=== PATIENT | female | born 1970 | race African-American/Black ===

== ENCOUNTER 2017-12-30 02:02 | Emergency (ER) | payer OTHER ==
[2017-12-30 02:38] LABS: ADD MAN DIFF? NO
[2017-12-30 02:44] LABS: BASO % 1 % (0-3); EOS % 1 % (0-3); HEMATOCRIT 28.6 % (36.0-47.0); HEMOGLOBIN 8.9 g/dL (12.0-15.5); LYMPH # 1.6 x10^3/uL (1.0-4.8); LYMPH % 27 % (24-48); MEAN CORPUSCULAR HEMOGLOBIN 22 pg (25-35); MEAN CORPUSCULAR HGB CONC 31 g/dL (31-37); MEAN CORPUSCULAR VOLUME 69 fL (79-100); MONO # 0.7 x10^3/uL (0.0-1.1); MONO % 11 % (0-9); NEUT # 3.5 x10^3uL (1.8-7.7); NEUT % 61 % (31-73); PLATELET COUNT 298 x10^3/uL (140-400); RED BLOOD COUNT 4.14 x10^6/uL (3.50-5.40); RED CELL DISTRIBUTION WIDTH 21.8 % (11.5-14.5); WHITE BLOOD COUNT 5.8 x10^3/uL (4.0-11.0)
[2017-12-30 02:50] LABS: ANION GAP 10 (6-14); BLOOD UREA NITROGEN 28 mg/dL (7-20); BUN/CREATININE RATIO 23 (6-20); CALCIUM 9.4 mg/dL (8.5-10.1); CARBON DIOXIDE 26 mmol/L (21-32); CHLORIDE 104 mmol/L (98-107); CREATININE 1.2 mg/dL (0.6-1.0); GFR 57.8; GLUCOSE 101 mg/dL (70-99); SODIUM 140 mmol/L (136-145)
[2017-12-30 02:55] LABS: ALBUMIN 3.1 g/dL (3.4-5.0); ALBUMIN/GLOBULIN RATIO 0.6 (1.0-1.7); ALK PHOS 72 U/L (46-116); ALT (SGPT) 18 U/L (14-59); AST (SGOT) 20 U/L (15-37); TOTAL BILIRUBIN 0.2 mg/dL (0.2-1.0); TOTAL PROTEIN 8.2 g/dL (6.4-8.2)
[2017-12-30 03:08] LABS: TROPONIN BY ISTAT 0.01 ng/ml (<0.08)
[2017-12-30 05:13] LABS: PLT ESTIMATE ADEQUATE (ADEQUATE)
[2017-12-30 05:14] LABS: ANISOCYTOSIS MOD; HYPOCHROMIA MOD; MICROCYTOSIS MOD
== END 2017-12-30 05:34 | disposition home or self-care (01) ==
LOC: ER 02:02
DX: I10 Essential (primary) hypertension (principal); G89.29 Other chronic pain; M25.562 Pain in left knee; M79.672 Pain in left foot; Z88.8 Allergy status to other drugs, medicaments and biological substances
CPT/HCPCS: 36415; 71046; 73560; 73620; 80053; 84484; 85025; 93005; 99285-25

== ENCOUNTER → 2018-02-23 | Outpatient (CLI) | payer OTHER | END | disposition home or self-care (01) | LOC: US 14:54 | DX: I10 Essential (primary) hypertension (principal) | CPT/HCPCS: 93975 ==

== ENCOUNTER 2019-06-05 01:34 | Inpatient (IN) | payer OTHER ==
[~2019-06-05] VITALS: Ht 154.9 cm; Wt 108.0 kg
[~2019-06-05 01:34] MED LIST: ATEN50TA PO; DILT180C2 PO; IBUP-1060 PO; IPRA4AER IH; LOSA100T14 PO; METH4TAB2 PO
--- NOTE | 2019-06-05 03:09 | PHYS DOC ---
Past Medical History Past Medical History: Hypertension, Other Additional Past Medical Histor: bilat le edema w/ soa. denies chf Past Surgical History: Alcohol Use: None Drug Use: None Adult General Chief Complaint Chief Complaint: DIZZY/LIGHT HEADED HPI HPI Patient is a 48 year old came in for elev bp up to 220 ON losartan and hydralazine did have some chest pain two days ago when bp was 240, "it wasnt like no heart attack but it was dull" only lasted a short time headache lasted for three days then it went away. today felt dizzy described as lightheadedness. no fever. Review of Systems Review of Systems Constitutional: Denies fever or chills [] Eyes: Denies change in visual acuity, redness, or eye pain [] HENT: Cardiovascular: No additional information not addressed in HPI [] GI: Denies abdominal pain, nausea, vomiting, bloody stools or diarrhea [] : Denies dysuria or hematuria [] Musculoskeletal: Denies back pain or joint pain [] All other systems were reviewed and found to be within normal limits, except as documented in this note. Current Medications Current Medications Current Medications Medications (Trade) Dose Ordered Sig/Angela Start Time Stop Time Status Last Admin Dose Admin Aspirin (Children'S Aspirin) 324 mg 1X ONCE 06/05/19 04:00 06/05/19 04:01 DC 06/05/19 03:36 324 MG Clonidine HCl (Catapres) 0.1 mg STK-MED ONCE 06/05/19 04:59 06/05/19 05:00 DC Labetalol HCl (Normodyne Iv Push) 20 mg PRN Q2HRS PRN 06/05/19 05:00 Nitroglycerin (Nitro-Bid Oint) 1 inch STK-MED ONCE 06/05/19 04:59 06/05/19 05:00 DC Allergies Allergies Allergies Coded Allergies Type Severity Reaction Last Updated Verified Corticosteroids (Glucocorticoids) Allergy Intermediate COUGH, RASH, HEADACHE 06/05/19 Yes Physical Exam Physical Exam Constitutional: Well developed, well nourished, no acute distress, non-toxic appearance. [] HENT: Normocephalic, atraumatic, bilateral external ears normal, oropharynx moist, no oral exudates, nose normal. [] Eyes: PERRLA, EOMI, conjunctiva normal, no discharge. [] Neck: Normal range of motion, no tenderness, supple, no stridor. [] Cardiovascular:Heart rate regular rhythm, no murmur [] Lungs & Thorax: Bilateral breath sounds clear to auscultation [] Abdomen: Bowel sounds normal, soft, no tenderness, no masses, no pulsatile masses. [] Skin: Warm, dry, no erythema, no rash. [] Back: No tenderness, no CVA tenderness. [] Extremities: No tenderness, no cyanosis, no clubbing, ROM intact, no edema. [] Neurologic: Alert and oriented X 3, normal motor function, normal sensory function, no focal deficits noted. [] Psychologic: Affect normal, judgement normal, mood normal. [] Current Patient Data Vital Signs Vital Signs Date Time Temp Pulse Resp B/P (MAP) Pulse Ox O2 Delivery O2 Flow Rate FiO2 06/05/19 04:14 62 15 97 06/05/19 03:40 232/112 06/05/19 03:20 97.6 Room Air 97.6 Lab Values Laboratory Tests Test 06/05/19 02:55 06/05/19 03:25 Urine Color Yellow Urine Clarity Clear Urine pH 5.5 Urine Specific [place] 1.015 Urine Protein Negative mg/dL (NEG-TRACE) Urine Glucose (UA) Negative mg/dL (NEG) Urine Ketones (Stick) Negative mg/dL (NEG) Urine Blood Negative (NEG) Urine Nitrite Negative (NEG) Urine Bilirubin Negative (NEG) Urine Urobilinogen Dipstick 0.2 mg/dL (0.2 mg/dL) Urine Leukocyte Esterase Negative (NEG) Urine RBC 0 /HPF (0-2) Urine WBC Occ /HPF (0-4) Urine Squamous Epithelial Cells Mod /LPF Urine Bacteria 0 /HPF (0-FEW) Urine Mucus Slight /LPF White Blood Count 5.2 x10^3/uL (4.0-11.0) Red Blood Count 4.13 x10^6/uL (3.50-5.40) Hemoglobin 11.8 g/dL (12.0-15.5) L Hematocrit 35.3 % (36.0-47.0) L Mean Corpuscular Volume 86 fL (79-100) Mean Corpuscular Hemoglobin 28 pg (25-35) Mean Corpuscular Hemoglobin Concent 33 g/dL (31-37) Red Cell Distribution Width 16.0 % (11.5-14.5) H Platelet Count 231 x10^3/uL (140-400) Neutrophils (%) (Auto) 57 % (31-73) Lymphocytes (%) (Auto) 31 % (24-48) Monocytes (%) (Auto) 10 % (0-9) H Eosinophils (%) (Auto) 1 % (0-3) Basophils (%) (Auto) 1 % (0-3) Neutrophils # (Auto) 3.0 x10^3/uL (1.8-7.7) Lymphocytes # (Auto) 1.6 x10^3/uL (1.0-4.8) Monocytes # (Auto) 0.5 x10^3/uL (0.0-1.1) Eosinophils # (Auto) 0.1 x10^3/uL (0.0-0.7) Basophils # (Auto) 0.0 x10^3/uL (0.0-0.2) Sodium Level 141 mmol/L (136-145) Potassium Level 4.0 mmol/L (3.5-5.1) Chloride Level 104 mmol/L (98-107) Carbon Dioxide Level 28 mmol/L (21-32) Anion Gap 9 (6-14) Blood Urea Nitrogen 24 mg/dL (7-20) H Creatinine 0.9 mg/dL (0.6-1.0) Estimated GFR (Cockcroft-Gault) 80.2 BUN/Creatinine Ratio 27 (6-20) H Glucose Level 103 mg/dL (70-99) H Calcium Level 9.2 mg/dL (8.5-10.1) Magnesium Level 1.9 mg/dL (1.8-2.4) Total Bilirubin 0.3 mg/dL (0.2-1.0) Aspartate Amino Transferase (AST) 19 U/L (15-37) Alanine Aminotransferase (ALT) 24 U/L (14-59) Alkaline Phosphatase 81 U/L (46-116) Troponin I Quantitative 0.035 ng/mL (0.000-0.055) CS-Lbx-J-Type Natriuretic Peptide 428 pg/mL (0-124) H Total Protein 7.7 g/dL (6.4-8.2) Albumin 3.1 g/dL (3.4-5.0) L Albumin/Globulin Ratio 0.7 (1.0-1.7) L Laboratory Tests 06/05/19 03:25 Laboratory Tests 06/05/19 03:25 EKG EKG []EKG shows a normal sinus rhythm there are some T-wave inversions laterally in 1 and aVL no STEMI ekg monitor did reveal a period of approximately 5 beats of nonsustained V. tach while in the emergency room Radiology/Procedures Radiology/Procedures [] Impressions: Chest x-ray my read suggested cardiomegaly Course & Med Decision Making Course & Med Decision Making Pertinent Labs and Imaging studies reviewed. (See chart for details) []48-year-old female with history of hypertension is presenting with hypertensive urgency she did have some dizziness and lightheadedness couple days ago did have some chest pain. Troponin negative in the emergency room the patient did have one episode of nonsustained V. tach. Last echo I have ACCESS TO was from 3 years ago and there is some cardiomegaly on chest x-ray so I was a little bit concerned about the possibility of reduced EF and risk for malignant arrhythmia. Given in addition the blood pressure is hard to control at think she should be admitted overnight for observation. We did do labetalol in the emergency room, ALSO TRIED clonidine and nitropaste. will work on getting it down that way. admit to hospitalist for cardiac monitoring given the nonsustaine vtach in ED, cards consult. electrolytes look good. Dragon Disclaimer Dragon Disclaimer This electronic medical record was generated, in whole or in part, using a voice recognition dictation system. Departure Departure Impression: Primary Impression: Hypertensive urgency Disposition: 09 ADMITTED INPATIENT Admitting Physician: HIMMaximiliano Condition: STABLE Referrals: NO PCP (PCP) VIRGINIA EVANS MD Jun 05, 2019 03:09
[2019-06-05] MEDS ORDERED: LABETALOL 20 MG/4 ML DISP.SYRIN. IVP ONE (03:15)
[2019-06-05 03:34] LABS: BILIRUBIN,URINE NEGATIVE (NEG); CLARITY,URINE CLEAR; COLOR,URINE YELLOW; NITRITE,URINE NEGATIVE (NEG); PH,URINE 5.5; PROTEIN,URINE NEGATIVE (NEG-TRACE); UROBILINOGEN,URINE 0.2 mg/dL (0.2 mg/dL)
[2019-06-05 03:36] LABS: BASO % 1 % (0-3); EOS # 0.1 x10^3/uL (0.0-0.7); EOS % 1 % (0-3); HEMATOCRIT 35.3 % (36.0-47.0); HEMOGLOBIN 11.8 g/dL (12.0-15.5); LYMPH # 1.6 x10^3/uL (1.0-4.8); LYMPH % 31 % (24-48); MEAN CORPUSCULAR HEMOGLOBIN 28 pg (25-35); MEAN CORPUSCULAR HGB CONC 33 g/dL (31-37); MEAN CORPUSCULAR VOLUME 86 fL (79-100); MONO # 0.5 x10^3/uL (0.0-1.1); MONO % 10 % (0-9); NEUT % 57 % (31-73); PLATELET COUNT 231 x10^3/uL (140-400); RED BLOOD COUNT 4.13 x10^6/uL (3.50-5.40); WHITE BLOOD COUNT 5.2 x10^3/uL (4.0-11.0)
[2019-06-05 03:40] LABS: SQUAMOUS EPITHELIAL CELL,UR MOD /LPF
[2019-06-05 03:41] LABS: BACTERIA,URINE 0 /HPF (0-FEW); RBC,URINE 0 /HPF (0-2); WBC,URINE OCC /HPF (0-4)
[2019-06-05 03:47] LABS: CALCIUM 9.2 mg/dL (8.5-10.1); CREATININE 0.9 mg/dL (0.6-1.0); GFR 80.2
[2019-06-05 03:52] LABS: ALBUMIN 3.1 g/dL (3.4-5.0); ALBUMIN/GLOBULIN RATIO 0.7 (1.0-1.7); TOTAL BILIRUBIN 0.3 mg/dL (0.2-1.0); TOTAL PROTEIN 7.7 g/dL (6.4-8.2)
[2019-06-05] MEDS ORDERED: ASPIRIN CHEWABLE 81 MG TABLET. PO ONE (04:00)
[2019-06-05] MEDS ORDERED: NITROGLYCERIN OINT 1 GM PACKET. ONE (04:59)
[2019-06-05] MEDS ORDERED: cloNIDine HCL 0.1 MG TABLET ONE (04:59)
[2019-06-05] MEDS ORDERED: LABETALOL 20 MG/4 ML DISP.SYRIN. IVP PRN (05:00)
[2019-06-05] MEDS ORDERED: cloNIDine HCL 0.1 MG TABLET PO ONE (05:15)
[2019-06-05] MEDS ORDERED: NITROGLYCERIN OINT 1 GM PACKET. TP ONE (05:15)
--- NOTE | 2019-06-05 06:16 | RAD ---
PORTABLE CHEST 1V Clinical Indication: Shortness of breath Comparison: Two-view chest December 30, 2017. Findings: There is unchanged cardiomegaly. Lungs are clear. There is no pneumothorax. No pleural effusion is appreciated. No acute bone abnormality. There is degenerative endplate spurring of the thoracic spine. IMPRESSION: No acute cardiopulmonary process. Electronically signed by: Chaparro Macias MD (06/05/2019 6:13 AM) [id number]
--- NOTE | 2019-06-05 06:40 | NUR ---
PATIENT ADMITTED TO ROOM 252 FROM ED. PATIENT ALERT AND ORIENTED X 4. PATIENT DENIES ANY COMPLAINTS. PATIENT PLACED ON MONITOR AND VITAL SIGNS OBTAINED. PATIENT ORIENTED TO ROOM, BED AND CALL LIGHT. CALL LIGHT IN REACH. PATIENT INSTRUCTED TO CALL FOR ASSISTANCE AND VERBALIZED UNDERSTANDING.
[2019-06-05 07:04] VITALS: BP 152/69
--- NOTE | 2019-06-05 07:11 | NUR ---
NELA IN REGISTRATION NOTIFIED OF PATIENT REQUESTING CONFIDENTIAL STATUS.
[2019-06-05] MEDS ORDERED: HYDR-2869 PO (10:17)
[2019-06-05] MEDS ORDERED: ATEN50TA PO (10:17)
--- NOTE | 2019-06-05 10:21 | PDOC1 ---
History and Physical Date of Admission Date of Admission DATE: 06/05/19 TIME: 10:18 History of Present Illness History of Present Illness Ms. Leon, is a 48 year old female, has been weak an dizzy. chest pain two days ago, no chest pain today , feels better this AM she is worried about her BP, has ran out of Atenolol, BP has been 220 systolic ON losartan and hydralazine headache lasted for three days then it went away. she feels well this AM and would like to DC home Past Medical History Cardiovascular: HTN Pulmonary: Bronchitis CENTRAL NERVOUS SYSTEM: Other GI: No pertinent hx Heme/Onc: No pertinent hx Hepatobiliary: No pertinent hx Psych: No pertinent hx Musculoskeletal: Other Rheumatologic: No pertinent hx Infectious disease: No pertinent hx Renal/: No pertinent hx Endocrine: No pertinent hx Past Surgical History Past Surgical History: Social History Smoke: No ALCOHOL: none Drugs: None Current Medications Current Medications Current Medications Labetalol HCl (Normodyne Iv Push) 20 mg 1X ONCE IVP Last administered on 06/05/19at 03:40; Start 06/05/19 at 03:15; Stop 06/05/19 at 03:16; Status DC Aspirin (Children'S Aspirin) 324 mg 1X ONCE PO Last administered on 06/05/19at 03:36; Start 06/05/19 at 04:00; Stop 06/05/19 at 04:01; Status DC Clonidine HCl (Catapres) 0.2 mg 1X ONCE PO Last administered on 06/05/19at 05:04; Start 06/05/19 at 05:15; Stop 06/05/19 at 05:16; Status DC Nitroglycerin (Nitro-Bid Oint) 1 inch 1X ONCE TP Last administered on 06/05/19at 05:06; Start 06/05/19 at 05:15; Stop 06/05/19 at 05:16; Status DC Labetalol HCl (Normodyne Iv Push) 20 mg PRN Q2HRS PRN IVP ELEVATED BP, SEE COMMENTS; Start 06/05/19 at 05:00 Clonidine HCl (Catapres) 0.1 mg STK-MED ONCE .ROUTE ; Start 06/05/19 at 04:59; Stop 06/05/19 at 05:00; Status DC Nitroglycerin (Nitro-Bid Oint) 1 inch STK-MED ONCE .ROUTE ; Start 06/05/19 at 04:59; Stop 06/05/19 at 05:00; Status DC Active Scripts Active Hydralazine Hcl 50 Mg Tablet 1 Tab PO TID Atenolol 50 Mg Tablet 1 Tab PO DAILY Cardizem Cd (Diltiazem Hcl) 180 Mg Cap.er.24h 1 Cap PO DAILY Ibuprofen 800 Mg Tablet 800 Mg PO PRN TID take with food or milk to avoid upsetting stomach Reported Medrol (Methylprednisolone) 4 Mg Tab.ds.pk 1 Pkg PO UD Combivent Respimat Inhal (Ipratropium/Albuterol Sulfate) 4 Gm Aer.w.adap 2 Inh IH QID Losartan Potassium 100 Mg Tablet 100 Mg PO DAILY Allergies Allergies: Coded Allergies: Corticosteroids (Glucocorticoids) (Verified Allergy, Intermediate, COUGH, RASH, HEADACHE, 06/05/19) ROS General: No: Chills, Night Sweats, Fatigue, Malaise, Appetite, Other PSYCHOLOGICAL ROS: No: Anxiety, Behavioral Disorder, Concentration difficultie, Decreased libido, Depression, Disorientation, Hallucinations, Hostility, Irritablity, Memory difficulties, Mood Swings, Obsessive thoughts, Physical abuse, Sexual abuse, Sleep disturbances, Suicidal ideation, Other Eyes: No Blurry vision, No Decreased vision, No Double vision, No Dry eyes, No Excessive tearing, No Eye Pain, No Itchy Eyes, No Loss of vision, No Photophobia, No Scotomata, No Uses contacts, No Uses glasses, No Other HEENT: No: Heacaches, Visual Changes, Hearing change, Nasal congestion, Nasal discharge, Oral lesions, Sinus pain, Sore Throat, Epistaxis, Sneezing, Snoring, Tinnitus, Vertigo, Vocal changes, Other Respiratory: No: Cough, Hemoptysis, Orthopnea, Pleuritic Pain, Shortness of breath, SOB with excertion, Sputum Changes, Stridor, Tachypnea, Wheezing, Other Cardiovascular: No Chest Pain, No Palpitations, No Orthopnea, No Paroxysmal Noc. Dyspnea, No Edema, No Lt Headedness, No Other Genitourinary: No Dysuria, No Frequency, No Incontinence, No Hematuria, No Retention, No Discharge, No Urgency, No Pain, No Flank Pain, No Other, No , No , No , No , No , No , No Musculoskeletal: Yes Gait Disturbance, Yes Joint Pain, Yes Joint Stiffness Neurological: No Behavorial Changes, No Bowel/Bladder ControlChng, No Confusion, No Dizziness, No Gait Disturbance, No Headaches, No Impaired Coord/ba wanda, No Memory Loss, No Numbness/Tingling, No Seizures, No Speech Problems, No Tremors, No Visual Changes, No Weakness, No Other Skin: No Dry Skin, No Eczema, No Hair Changes, No Lumps, No Mole Changes, No Mottling, No Nail Changes, No Pruritus, No Rash, No Skin Lesion Changes, No Other, No Acne Physical Exam General: Alert, Oriented X3, Cooperative HEENT: Atraumatic, PERRLA Lungs: Clear to auscultation Heart: S1S2 Rectal Exam: not examined Extremities: No clubbing Skin: No rashes Neuro: Normal speech, Normal tone Psych/Mental Status: Mental status NL, Mood NL Vitals Vitals Vital Signs Date Time Temp Pulse Resp B/P (MAP) Pulse Ox O2 Delivery O2 Flow Rate FiO2 06/05/19 07:48 Room Air 06/05/19 07:04 97.7 61 19 152/69 (96) 94 97.7 Labs Labs Laboratory Tests Test 06/05/19 02:55 06/05/19 03:25 06/05/19 08:05 Urine Color Yellow Urine Clarity Clear Urine pH 5.5 Urine Specific [place] 1.015 Urine Protein Negative mg/dL (NEG-TRACE) Urine Glucose (UA) Negative mg/dL (NEG) Urine Ketones (Stick) Negative mg/dL (NEG) Urine Blood Negative (NEG) Urine Nitrite Negative (NEG) Urine Bilirubin Negative (NEG) Urine Urobilinogen Dipstick 0.2 mg/dL (0.2 mg/dL) Urine Leukocyte Esterase Negative (NEG) Urine RBC 0 /HPF (0-2) Urine WBC Occ /HPF (0-4) Urine Squamous Epithelial Cells Mod /LPF Urine Bacteria 0 /HPF (0-FEW) Urine Mucus Slight /LPF White Blood Count 5.2 x10^3/uL (4.0-11.0) Red Blood Count 4.13 x10^6/uL (3.50-5.40) Hemoglobin 11.8 g/dL (12.0-15.5) Hematocrit 35.3 % (36.0-47.0) Mean Corpuscular Volume 86 fL (79-100) Mean Corpuscular Hemoglobin 28 pg (25-35) Mean Corpuscular Hemoglobin Concent 33 g/dL (31-37) Red Cell Distribution Width 16.0 % (11.5-14.5) Platelet Count 231 x10^3/uL (140-400) Neutrophils (%) (Auto) 57 % (31-73) Lymphocytes (%) (Auto) 31 % (24-48) Monocytes (%) (Auto) 10 % (0-9) Eosinophils (%) (Auto) 1 % (0-3) Basophils (%) (Auto) 1 % (0-3) Neutrophils # (Auto) 3.0 x10^3/uL (1.8-7.7) Lymphocytes # (Auto) 1.6 x10^3/uL (1.0-4.8) Monocytes # (Auto) 0.5 x10^3/uL (0.0-1.1) Eosinophils # (Auto) 0.1 x10^3/uL (0.0-0.7) Basophils # (Auto) 0.0 x10^3/uL (0.0-0.2) Sodium Level 141 mmol/L (136-145) Potassium Level 4.0 mmol/L (3.5-5.1) Chloride Level 104 mmol/L (98-107) Carbon Dioxide Level 28 mmol/L (21-32) Anion Gap 9 (6-14) Blood Urea Nitrogen 24 mg/dL (7-20) Creatinine 0.9 mg/dL (0.6-1.0) Estimated GFR (Cockcroft-Gault) 80.2 BUN/Creatinine Ratio 27 (6-20) Glucose Level 103 mg/dL (70-99) Calcium Level 9.2 mg/dL (8.5-10.1) Magnesium Level 1.9 mg/dL (1.8-2.4) Total Bilirubin 0.3 mg/dL (0.2-1.0) Aspartate Amino Transf (AST/SGOT) 19 U/L (15-37) Alanine Aminotransferase (ALT/SGPT) 24 U/L (14-59) Alkaline Phosphatase 81 U/L (46-116) Troponin I Quantitative 0.035 ng/mL (0.000-0.055) 0.038 ng/mL (0.000-0.055) IT-Eyp-D-Type Natriuretic Peptide 428 pg/mL (0-124) Total Protein 7.7 g/dL (6.4-8.2) Albumin 3.1 g/dL (3.4-5.0) Albumin/Globulin Ratio 0.7 (1.0-1.7) Laboratory Tests Test 06/05/19 02:55 06/05/19 03:25 06/05/19 08:05 Urine Color Yellow Urine Clarity Clear Urine pH 5.5 Urine Specific [place] 1.015 Urine Protein Negative mg/dL (NEG-TRACE) Urine Glucose (UA) Negative mg/dL (NEG) Urine Ketones (Stick) Negative mg/dL (NEG) Urine Blood Negative (NEG) Urine Nitrite Negative (NEG) Urine Bilirubin Negative (NEG) Urine Urobilinogen Dipstick 0.2 mg/dL (0.2 mg/dL) Urine Leukocyte Esterase Negative (NEG) Urine RBC 0 /HPF (0-2) Urine WBC Occ /HPF (0-4) Urine Squamous Epithelial Cells Mod /LPF Urine Bacteria 0 /HPF (0-FEW) Urine Mucus Slight /LPF White Blood Count 5.2 x10^3/uL (4.0-11.0) Red Blood Count 4.13 x10^6/uL (3.50-5.40) Hemoglobin 11.8 g/dL (12.0-15.5) Hematocrit 35.3 % (36.0-47.0) Mean Corpuscular Volume 86 fL (79-100) Mean Corpuscular Hemoglobin 28 pg (25-35) Mean Corpuscular Hemoglobin Concent 33 g/dL (31-37) Red Cell Distribution Width 16.0 % (11.5-14.5) Platelet Count 231 x10^3/uL (140-400) Neutrophils (%) (Auto) 57 % (31-73) Lymphocytes (%) (Auto) 31 % (24-48) Monocytes (%) (Auto) 10 % (0-9) Eosinophils (%) (Auto) 1 % (0-3) Basophils (%) (Auto) 1 % (0-3) Neutrophils # (Auto) 3.0 x10^3/uL (1.8-7.7) Lymphocytes # (Auto) 1.6 x10^3/uL (1.0-4.8) Monocytes # (Auto) 0.5 x10^3/uL (0.0-1.1) Eosinophils # (Auto) 0.1 x10^3/uL (0.0-0.7) Basophils # (Auto) 0.0 x10^3/uL (0.0-0.2) Sodium Level 141 mmol/L (136-145) Potassium Level 4.0 mmol/L (3.5-5.1) Chloride Level 104 mmol/L (98-107) Carbon Dioxide Level 28 mmol/L (21-32) Anion Gap 9 (6-14) Blood Urea Nitrogen 24 mg/dL (7-20) Creatinine 0.9 mg/dL (0.6-1.0) Estimated GFR (Cockcroft-Gault) 80.2 BUN/Creatinine Ratio 27 (6-20) Glucose Level 103 mg/dL (70-99) Calcium Level 9.2 mg/dL (8.5-10.1) Magnesium Level 1.9 mg/dL (1.8-2.4) Total Bilirubin 0.3 mg/dL (0.2-1.0) Aspartate Amino Transf (AST/SGOT) 19 U/L (15-37) Alanine Aminotransferase (ALT/SGPT) 24 U/L (14-59) Alkaline Phosphatase 81 U/L (46-116) Troponin I Quantitative 0.035 ng/mL (0.000-0.055) 0.038 ng/mL (0.000-0.055) XB-Jph-S-Type Natriuretic Peptide 428 pg/mL (0-124) Total Protein 7.7 g/dL (6.4-8.2) Albumin 3.1 g/dL (3.4-5.0) Albumin/Globulin Ratio 0.7 (1.0-1.7) VTE Prophylaxis Ordered VTE Prophylaxis Devices: Yes VTE Pharmacological Prophylaxi: No Assessment/Plan Assessment/Plan accelerated hypertension obesity, BMI 45 ran out of atenolol BP better today OA knees, 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
[2019-06-05 11:00] VITALS: BP 185/98
[2019-06-05] MEDS ORDERED: ATENOLOL 50 MG TABLET. PO SCH (11:30)
[2019-06-05] MEDS ORDERED: LOSARTAN POTASSIUM 50 MG TABLET. PO SCH (11:30)
--- NOTE | 2019-06-05 14:23 | CARD ---
MR#: [id number] Date of Study: 06/05/2019 Ordering Physician: DENIS DUVAL, Referring Physician: ARNALDO SALMON Tech: Renea Hunter RDCS APPROVED REPORT EXAM: Two-dimensional and M-mode echocardiogram with Doppler and color Doppler. Other Information Quality : Good INDICATION Arrhythmia 2D DIMENSIONS RVDd2.8 (2.9-3.5cm)Left Atrium(2D)4.5 (1.6-4.0cm) IVSd1.6 (0.7-1.1cm)Aortic Root(2D)2.8 (2.0-3.7cm) LVDd4.9 (3.9-5.9cm)LVOT Diameter1.9 (1.8-2.4cm) PWd1.2 (0.7-1.1cm)LVDs2.9 (2.5-4.0cm) FS (%) 30.0 %SV82.4 ml LVEF(%)60.0 (>50%) Aortic Valve AoV Peak Quang.193.0cm/sAoV VTI39.7cm AO Peak GR.14.9mmHgLVOT Peak Quang.151.2cm/s AO Mean GR.8mmHgAVA (VMAX)2.13cm2 NAKITA (VTI)2.40cm2 Mitral Valve MV E Myaxttzq76.3cm/sMV DECEL [id number] MV A Hsitrawi96.1cm/sE/A Ratio1.0 Tricuspid Valve TR P. [id number]/sRAP [id number] TR Peak Gr.[id number] Pulmonary Vein S1 Pzubxbht87.8cm/sD2 Bgrfmkqx87.0cm/s LEFT VENTRICLE The left ventricle is normal size. There is mild to moderate concentric left ventricular hypertrophy. The left ventricular systolic function is normal and the ejection fraction is within normal range. T he Ejection Fraction is 55-60%. There is normal LV segmental wall motion. The left ventricular diasto lic function and filling is normal for age. RIGHT VENTRICLE The right ventricle is normal size. The right ventricular systolic function is normal. ATRIA The left atrium is mildly dilated. The right atrium size is normal. The interatrial septum is intact with no evidence for an atrial septal defect or patent foramen ovale as noted on 2-D or Doppler imagi ng. AORTIC VALVE The aortic valve is normal in structure and function. Doppler and Color Flow revealed no significant aortic regurgitation. There is no significant aortic valvular stenosis. MITRAL VALVE The mitral valve is normal in structure and function. There is no evidence of mitral valve prolapse. There is no mitral valve stenosis. Doppler and Color-flow revealed trace to mild mitral regurgitation . TRICUSPID VALVE The tricuspid valve is normal in structure and function. Doppler and Color Flow revealed tracel tricu spid regurgitation. The PA pressure was estimated at 27 mmHg. There is no tricuspid valve stenosis. PULMONIC VALVE The pulmonary valve is normal in structure and function. Doppler and Color Flow revealed mild pulmoni c valvular regurgitation. There is no pulmonic valvular stenosis. GREAT VESSELS The aortic root is normal in size. The ascending aorta is normal in size. The IVC is normal in size a nd collapses >50% with inspiration. PERICARDIAL EFFUSION There is no evidence of significant pericardial effusion. Critical Notification Critical Value: No <Conclusion> The left ventricle is normal size. The left ventricular systolic function is normal and the ejection fraction is within normal range. The Ejection Fraction is 55-60%. There is mild to moderate concentric left ventricular hypertrophy. There is no significant aortic valvular stenosis. Doppler and Color Flow revealed no significant aortic regurgitation. Doppler and Color-flow revealed trace to mild mitral regurgitation. Doppler and Color Flow revealed tracel tricuspid regurgitation. The PA pressure was estimated at 27 mmHg. Signed by : Denis Duval MD Electronically Approved : 06/05/2019 14:22:33
[2019-06-05 15:00] VITALS: BP 150/77
--- NOTE | 2019-06-05 17:19 | PDOC2 ---
CONSULT Date of Consult Date of Consult DATE: 06/05/19 TIME: 17:13 Reason for Consult Reason for Consult: accelerated hypertension Referring Physician Referring Physician: Dr. Goldman Identification/Chief Complaint Chief Complaint weakness Source Source: Chart review, Patient History of Present Illness Reason for Visit: The patient is a 48-year-old female who was evaluated in the emergency room for episodes of weakness and mild dizziness. She has a history of hypertension and is treated with losartan and hydralazine but has been out of her beta aliza for more than a month. Initial blood pressure was 220. She also reported 2 days ago she had mild episodes of chest discomfort. EKG showed no acute ischemic changes. Troponins have been minimally elevated overnight with a peak of 0.038. Patient also had a reportedly 5 beats of wide complex tachycardia in the emergency room. Her rhythm has remained stable since that time. This morning she is resting comfortably in bed. Past Medical History Cardiovascular: HTN Pulmonary: Bronchitis CENTRAL NERVOUS SYSTEM: Other (mild dizziness) GI: No pertinent hx Heme/Onc: No pertinent hx Hepatobiliary: No pertinent hx Psych: No pertinent hx Musculoskeletal: Other Rheumatologic: No pertinent hx Infectious disease: No pertinent hx Renal/: No pertinent hx Endocrine: No pertinent hx Past Surgical History Past Surgical History: Family History Family History: Hypertension Social History No ALCOHOL: none Drugs: None Lives: with Family Current Medications Current Medications Current Medications Labetalol HCl (Normodyne Iv Push) 20 mg 1X ONCE IVP Last administered on 06/05/19at 03:40; Start 06/05/19 at 03:15; Stop 06/05/19 at 03:16; Status DC Aspirin (Children'S Aspirin) 324 mg 1X ONCE PO Last administered on 06/05/19at 03:36; Start 06/05/19 at 04:00; Stop 06/05/19 at 04:01; Status DC Clonidine HCl (Catapres) 0.2 mg 1X ONCE PO Last administered on 06/05/19at 05:04; Start 06/05/19 at 05:15; Stop 06/05/19 at 05:16; Status DC Nitroglycerin (Nitro-Bid Oint) 1 inch 1X ONCE TP Last administered on 06/05/19at 05:06; Start 06/05/19 at 05:15; Stop 06/05/19 at 05:16; Status DC Labetalol HCl (Normodyne Iv Push) 20 mg PRN Q2HRS PRN IVP ELEVATED BP, SEE COMMENTS; Start 06/05/19 at 05:00 Clonidine HCl (Catapres) 0.1 mg STK-MED ONCE .ROUTE ; Start 06/05/19 at 04:59; Stop 06/05/19 at 05:00; Status DC Nitroglycerin (Nitro-Bid Oint) 1 inch STK-MED ONCE .ROUTE ; Start 06/05/19 at 04:59; Stop 06/05/19 at 05:00; Status DC Atenolol (Tenormin) 50 mg DAILY PO Last administered on 06/05/19at 11:31; Start 06/05/19 at 11:30 Hydralazine HCl (Apresoline) 50 mg TID PO Last administered on 06/05/19at 11:31; Start 06/05/19 at 11:30 Losartan Potassium (Cozaar) 100 mg DAILY PO Last administered on 06/05/19at 11:32; Start 06/05/19 at 11:30 Active Scripts Active Hydralazine Hcl 50 Mg Tablet 1 Tab PO TID Atenolol 50 Mg Tablet 1 Tab PO DAILY Ibuprofen 800 Mg Tablet 800 Mg PO PRN TID take with food or milk to avoid upsetting stomach Reported Combivent Respimat Inhal (Ipratropium/Albuterol Sulfate) 4 Gm Aer.w.adap 2 Inh I H QID Losartan Potassium 100 Mg Tablet 100 Mg PO DAILY Allergies Allergies: Coded Allergies: Corticosteroids (Glucocorticoids) (Verified Allergy, Intermediate, COUGH, RASH, HEADACHE, 06/05/19) ROS General: YES: Fatigue Cardiovascular: yes Chest Pain, yes Lt Headedness Physical Exam General: No acute distress HEENT: Atraumatic Lungs: Clear to auscultation Heart: Regular rate Abdomen: Normal bowel sounds Vitals VITALS Vital Signs Date Time Temp Pulse Resp B/P (MAP) Pulse Ox O2 Delivery O2 Flow Rate FiO2 06/05/19 15:00 97.5 67 18 150/77 (101) 95 Room Air 97.5 Labs Labs Laboratory Tests Test 06/05/19 02:55 06/05/19 03:25 06/05/19 08:05 06/05/19 11:00 Urine Color Yellow Urine Clarity Clear Urine pH 5.5 Urine Specific [place] 1.015 Urine Protein Negative mg/dL (NEG-TRACE) Urine Glucose (UA) Negative mg/dL (NEG) Urine Ketones (Stick) Negative mg/dL (NEG) Urine Blood Negative (NEG) Urine Nitrite Negative (NEG) Urine Bilirubin Negative (NEG) Urine Urobilinogen Dipstick 0.2 mg/dL (0.2 mg/dL) Urine Leukocyte Esterase Negative (NEG) Urine RBC 0 /HPF (0-2) Urine WBC Occ /HPF (0-4) Urine Squamous Epithelial Cells Mod /LPF Urine Bacteria 0 /HPF (0-FEW) Urine Mucus Slight /LPF White Blood Count 5.2 x10^3/uL (4.0-11.0) Red Blood Count 4.13 x10^6/uL (3.50-5.40) Hemoglobin 11.8 g/dL (12.0-15.5) Hematocrit 35.3 % (36.0-47.0) Mean Corpuscular Volume 86 fL (79-100) Mean Corpuscular Hemoglobin 28 pg (25-35) Mean Corpuscular Hemoglobin Concent 33 g/dL (31-37) Red Cell Distribution Width 16.0 % (11.5-14.5) Platelet Count 231 x10^3/uL (140-400) Neutrophils (%) (Auto) 57 % (31-73) Lymphocytes (%) (Auto) 31 % (24-48) Monocytes (%) (Auto) 10 % (0-9) Eosinophils (%) (Auto) 1 % (0-3) Basophils (%) (Auto) 1 % (0-3) Neutrophils # (Auto) 3.0 x10^3/uL (1.8-7.7) Lymphocytes # (Auto) 1.6 x10^3/uL (1.0-4.8) Monocytes # (Auto) 0.5 x10^3/uL (0.0-1.1) Eosinophils # (Auto) 0.1 x10^3/uL (0.0-0.7) Basophils # (Auto) 0.0 x10^3/uL (0.0-0.2) Sodium Level 141 mmol/L (136-145) Potassium Level 4.0 mmol/L (3.5-5.1) Chloride Level 104 mmol/L (98-107) Carbon Dioxide Level 28 mmol/L (21-32) Anion Gap 9 (6-14) Blood Urea Nitrogen 24 mg/dL (7-20) Creatinine 0.9 mg/dL (0.6-1.0) Estimated GFR (Cockcroft-Gault) 80.2 BUN/Creatinine Ratio 27 (6-20) Glucose Level 103 mg/dL (70-99) Calcium Level 9.2 mg/dL (8.5-10.1) Magnesium Level 1.9 mg/dL (1.8-2.4) Total Bilirubin 0.3 mg/dL (0.2-1.0) Aspartate Amino Transf (AST/SGOT) 19 U/L (15-37) Alanine Aminotransferase (ALT/SGPT) 24 U/L (14-59) Alkaline Phosphatase 81 U/L (46-116) Troponin I Quantitative 0.035 ng/mL (0.000-0.055) 0.038 ng/mL (0.000-0.055) 0.020 ng/mL (0.000-0.055) MZ-Coy-S-Type Natriuretic Peptide 428 pg/mL (0-124) Total Protein 7.7 g/dL (6.4-8.2) Albumin 3.1 g/dL (3.4-5.0) Albumin/Globulin Ratio 0.7 (1.0-1.7) Laboratory Tests Test 06/05/19 02:55 06/05/19 03:25 06/05/19 08:05 06/05/19 11:00 Urine Color Yellow Urine Clarity Clear Urine pH 5.5 Urine Specific [place] 1.015 Urine Protein Negative mg/dL (NEG-TRACE) Urine Glucose (UA) Negative mg/dL (NEG) Urine Ketones (Stick) Negative mg/dL (NEG) Urine Blood Negative (NEG) Urine Nitrite Negative (NEG) Urine Bilirubin Negative (NEG) Urine Urobilinogen Dipstick 0.2 mg/dL (0.2 mg/dL) Urine Leukocyte Esterase Negative (NEG) Urine RBC 0 /HPF (0-2) Urine WBC Occ /HPF (0-4) Urine Squamous Epithelial Cells Mod /LPF Urine Bacteria 0 /HPF (0-FEW) Urine Mucus Slight /LPF White Blood Count 5.2 x10^3/uL (4.0-11.0) Red Blood Count 4.13 x10^6/uL (3.50-5.40) Hemoglobin 11.8 g/dL (12.0-15.5) Hematocrit 35.3 % (36.0-47.0) Mean Corpuscular Volume 86 fL (79-100) Mean Corpuscular Hemoglobin 28 pg (25-35) Mean Corpuscular Hemoglobin Concent 33 g/dL (31-37) Red Cell Distribution Width 16.0 % (11.5-14.5) Platelet Count 231 x10^3/uL (140-400) Neutrophils (%) (Auto) 57 % (31-73) Lymphocytes (%) (Auto) 31 % (24-48) Monocytes (%) (Auto) 10 % (0-9) Eosinophils (%) (Auto) 1 % (0-3) Basophils (%) (Auto) 1 % (0-3) Neutrophils # (Auto) 3.0 x10^3/uL (1.8-7.7) Lymphocytes # (Auto) 1.6 x10^3/uL (1.0-4.8) Monocytes # (Auto) 0.5 x10^3/uL (0.0-1.1) Eosinophils # (Auto) 0.1 x10^3/uL (0.0-0.7) Basophils # (Auto) 0.0 x10^3/uL (0.0-0.2) Sodium Level 141 mmol/L (136-145) Potassium Level 4.0 mmol/L (3.5-5.1) Chloride Level 104 mmol/L (98-107) Carbon Dioxide Level 28 mmol/L (21-32) Anion Gap 9 (6-14) Blood Urea Nitrogen 24 mg/dL (7-20) Creatinine 0.9 mg/dL (0.6-1.0) Estimated GFR (Cockcroft-Gault) 80.2 BUN/Creatinine Ratio 27 (6-20) Glucose Level 103 mg/dL (70-99) Calcium Level 9.2 mg/dL (8.5-10.1) Magnesium Level 1.9 mg/dL (1.8-2.4) Total Bilirubin 0.3 mg/dL (0.2-1.0) Aspartate Amino Transf (AST/SGOT) 19 U/L (15-37) Alanine Aminotransferase (ALT/SGPT) 24 U/L (14-59) Alkaline Phosphatase 81 U/L (46-116) Troponin I Quantitative 0.035 ng/mL (0.000-0.055) 0.038 ng/mL (0.000-0.055) 0.020 ng/mL (0.000-0.055) JJ-Flr-F-Type Natriuretic Peptide 428 pg/mL (0-124) Total Protein 7.7 g/dL (6.4-8.2) Albumin 3.1 g/dL (3.4-5.0) Albumin/Globulin Ratio 0.7 (1.0-1.7) Images Images Chest x-ray with no acute changes Assessment/Plan Assessment/Plan 1. Accelerated hypertension. Patient's blood pressure is under better control overnight. She has been off her beta aliza for more than a month and it was restarted. Echocardiogram shows normal LV systolic function but mild to moderate left ventricular hypertrophy. Have encouraged close monitoring of her blood pressure medical compliance. We'll follow-up as an outpatient. 2. Reported episode of brief wide complex tachycardia. No further episodes. Echo shows normal LV function. We'll continue to monitor. 3. Brief episode of chest discomfort 2 days ago. No ischemic changes. Minimally elevated troponin at 0.038 consistent with demand ischemia. We'll continue medical treatment as above and follow-up in the office. 4. History of possible heart failure. Systolic function is normal but the patient does have mild to moderate LVH consistent with diastolic failure. We'll continue to monitor. Thank you for allowing us to participate in the care of your patient. DENIS KAMARA MD Jun 05, 2019 17:19
--- NOTE | 2019-06-05 18:01 | EKG ---
[facility] [address] [place] [address] Test Date: 2019-06-05 Test Time: 03:10:59 Pat Name: CURT HENSON Department: Room: Gender: F Flexible Nanny: : 1970 Requested By: VIRGINIA EVANS Order Number: [id number] Reading MD: Measurements Intervals [place] Rate: 63 P: 57 MO: 142 QRS: 9 QRSD: 94 T: 117 QT: 436 QTc: 449 Interpretive Statements SINUS RHYTHM T ABNORMALITY IN LATERAL LEADS ABNORMAL ECG RI6.01 No previous ECG available for comparison
--- NOTE | 2019-06-05 18:13 | NUR ---
Discharge Note: CURT HENSON Discharge instructions and discharge home medications reviewed with Patient and a copy given. All questions have been answered and understanding verbalized. Prescriptions given to patient. All belongings returned and taken with patient. The following instructions and handouts were given: hypertension, chest pain, atenolol tablets, and hydralazine Discontinued lines and drains: Peripheral IV intact. Patient discharged to Home or Self Care with Self via Wheelchair
== END 2019-06-05 18:15 | disposition home or self-care (01) | DRG 305 ==
LOC: ER 01:34 → EEVIPCON 04:50 → 2 SOUTH 04:50
PROVIDERS: ADMIT Family Medicine; ATTEND Family Medicine
DX: I16.0 Hypertensive urgency (principal); I24.8 Other forms of acute ischemic heart disease; Z68.42 Body mass index [BMI] 45.0-49.9, adult; E66.9 Obesity, unspecified; I11.9 Hypertensive heart disease without heart failure; M17.0 Bilateral primary osteoarthritis of knee; Z82.49 Family history of ischemic heart disease and other diseases of the circulatory system; Z88.8 Allergy status to other drugs, medicaments and biological substances; Z79.899 Other long term (current) drug therapy
CPT/HCPCS: 36415; 71045; 80053; 81001; 83735; 83880; 84484; 85025; 93005; 93306; J3490